=== PATIENT | female | born 1940 | race Caucasian/White ===

== ENCOUNTER 2023-04-21 10:13 | Day surgery (SDC) | payer OTHER ==
[~2023-04-21] VITALS: Ht 160 cm; Wt 67.1 kg
[2023-04-21] MEDS ORDERED: BUPIVACAINE LIPOSOME/PF 266 MG/20 ML VIAL INFIL ONE (12:29)
[2023-04-21 12:42] VITALS: O2SAT 94
[2023-04-21] MEDS ORDERED: NS IRRIG SOLN 1000 ML IR ONE (13:20)
[2023-04-21] MEDS ORDERED: BUPIVACAINE /PF 0.25% 30 ML VIAL INJ ONE (13:20)
[2023-04-21] MEDS ORDERED: PROPOFOL 200MG/ 20ML VIAL (DIPRIVAN) IV ONE (13:20)
[2023-04-21] MEDS ORDERED: MIDAZOLAM HCL/PF 2 MG/2 ML SYRINGE ONE (13:20)
[2023-04-21] MEDS ORDERED: ePHEDrine sulfate 50 MG/ML VIAL ONE (13:20)
[2023-04-21] MEDS ORDERED: fentaNYL CITRATE/PF 100 MCG/2 ML AMP ONE (13:20)
[2023-04-21] MEDS ORDERED: ONDANSETRON HCL 4 MG/2 ML VIAL IVP PRN (14:15)
[2023-04-21] MEDS ORDERED: MORPHINE 4 MG INJ. 4 MG/ML VIAL IVP PRN ×3 (14:15)
[2023-04-21 16:00] VITALS: BP_SYST 135; PULSE 67; RESP 20
== END 2023-04-21 15:55 | disposition home or self-care (01) ==
LOC: SDS 10:13 → SMU 10:17 → SDS 15:55
PROVIDERS: ATTEND Surgery
DX: K64.8 Other hemorrhoids (principal); I12.9 Hypertensive chronic kidney disease with stage 1 through stage 4 chronic kidney disease, or unspecified chronic kidney disease; N18.9 Chronic kidney disease, unspecified; E11.22 Type 2 diabetes mellitus with diabetic chronic kidney disease; K21.9 Gastro-esophageal reflux disease without esophagitis; J45.909 Unspecified asthma, uncomplicated; M06.9 Rheumatoid arthritis, unspecified; E78.5 Hyperlipidemia, unspecified; Z88.0 Allergy status to penicillin; Z91.040 Latex allergy status; Z86.73 Personal history of transient ischemic attack (TIA), and cerebral infarction without residual deficits; Z87.891 Personal history of nicotine dependence; Z79.899 Other long term (current) drug therapy
CPT/HCPCS: 87081; 46260; 93005; 82962; 88304; C9290; J3490; J3465; J2704; J3010